=== PATIENT | male | born 1945 | race Caucasian/White ===

== ENCOUNTER 2016-12-03 21:24 | Emergency (ER) | payer MEDICARE ==
[~2016-12-03] VITALS: Ht 170.2 cm; Wt 93.0 kg
[~2016-12-03 21:24] MED LIST: AMLO5TAB PO; ASPIRIN 81MG TA81 MG PO; AUGMENTIN 875-1 EACH PO; BACTRIM DS 8001 TA1 PO; CENTRUM SILVER1 TAB PO; COQ10 IN OIL1 SGL PO; CRESTOR10 MG PO; DIGESTIVE ENZYM1 TAB PO; FLONASE 50 MCG16 GM; KEFLEX 500MG.500 MG PO; LISINOPRIL 10MG10 MG PO; MULTIVITAMIN1 TAB PO; OMEGA 31000 MG PO; PROBIOTIC FORMU1 CA1 PO; SIMVASTATIN20 MG PO; VITAMIN D1000 IU PO; ZETIA10 MG PO; ZOFRAN4 MG PO
--- NOTE | 2016-12-03 22:57 | Emergency Room Report ---
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 N Clinical Suspician of Infection? N Mental Status: 1 - Regular (Normal Baseline) Sepsis Risk:Low Sepsis Risk Have you (or family members/close friends) recently traveled outside the [place]? N If Yes, where/when: Have you had exposure to infectious disease within the past month? N TB? Other? Specify: Source patient, RN notes reviewed, family, old records Exam Limitations no limitations Comment pt with lt lower leg swelling just noted tonight with no known trauma or insect bite - he had some soreness during the day lat lt leg Cardiac Chest Pain Chest pain indicative of cardiac No Timing/Duration this evening Severity moderate ALLERGIES Coded Allergies: No Known Allergies (10/05/16) Home Medications Active Scripts Amoxicillin/Potassium Clav (Augmentin 875-125 Tablet) 1 EACH PO BID #14 TAB Prov: 10/18/16 Fluticasone Propionate (Flonase 50 Mcg Nasal [place]) 2 SPRAY NA DAILY #1 BOT Prov: 10/18/16 Reported Medications CHOLECALCIFEROL (VITAMIN D3) (Vitamin D3) 5,000 IUNITS PO WEEKLY ASPIRIN (Aspirin) 81 MG PO DAILY MULTIVIT,THER IRON,CA,FA & MIN (Sm Therapeutic M Tablet) 1 TAB PO DAILY B.ANI/L.ACI/L.DAILY/L.PLAN/L.MAX (Probiotic Formula Capsule) 1 CAP PO DAILY LISINOPRIL (Lisinopril) 40 MG PO DAILY Rosuvastatin Calcium (Crestor) 10 MG PO QHS Amlodipine Besylate (Amlodipine) 5 MG PO DAILY Enzymes2 (Digestive Enzymes) 1 TAB PO MULTIVITAMIN (Multiple Vitamins) 1 TAB PO DAILY Coenzyme Q10/Vitamin E (Coq10 in Oil) 1 SGL PO DAILY History Medical History General CAD? Yes Angina: No AR: No Hypertension? Yes Hyperlipidemia? Yes CHF? No DVT? No PE? No COPD? No Asthma? No Anemia? No GERD? No Gastric ulcers? No GI Bleed? No Hernia? No Thyroid Problems? No Hypothyroidism? No CVA? No Seizures? No Diabetes? No Renal Insuffiency? No End Stage Renal Disease? No UTI? No Stones? No BPH? No GB Disease: No Nephritic Syndrome? No Asplenia? No Hepatitis? No Sickle Cell Disease? No Arthritis? No Migraines? No Cataracts? No Glaucoma? No MRSA? No HIV? No TB? No Anxiety? No Depression? No Cancer? No More? No Immunization Hx DT/Tetanus UNKNOWN Flu 2011-FSN Pneumonia REFUSES Surgical Hx Previous Surgery?Y REMOVAL SKIN LESIONS ORAL SURGERY Family History Family Hx Diabetes No CAD No Hypertension No Hyperlipidemia No Cancer Yes TB No Social History Smoking Hx Smoker: Never Smoker Tobacco: No Alcohol Alcohol: No Drugs none Review of Systems All Other Systems Reviewed and Negative Constitutional denies fever Eyes denies drainage ENT denies: ear discharge, epistaxis, throat pain. Respiratory denies cough, denies shortness of breath, denies wheezing Cardiovascular denies chest pain, denies syncope Gastrointestinal denies abdominal pain, denies diarrhea, denies vomiting Genitourinary denies: dysuria, frequency, hesitancy, hematuria. Musculoskeletal see HPI, denies back pain, denies joint pain, denies joint swelling, denies neck pain, other Skin denies rash Psychiatric/Neurological denies headache, denies seizure Physical Exam Vital Signs Vital Signs Date Time Temp Pulse Resp B/P Pulse O2 O2 Flow FiO2 Ox Delivery Rate 12/03 2259 98.2 68 18 158/86 96 12/03 2131 98.0 69 18 149/75 98 - WBC >12,000 or <4,000 or 10% bands? 2 or more SIRS Criteria Met? B/P:158/86 MAP:99 Creatinine >2.0? UA output<0.5ml/kg/hr for 2 hrs? Platelet count >100,000? Lactate >2.0mmol/1? INR >1.2 or PTT > than 60 sec? Evidence of Organ Dysfunction? Provider documented clinical suspician of infection? N Sepsis Criteria Count: 0 Sepsis Risk: Low Sepsis Risk General Appearance no apparent distress Eye Exam - bilateral eye PERRL, bilateral eye EOMI Ear, Nose, Throat normal ENT inspection Neck supple Respiratory Status No: respiratory distress. 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 No Results/Orders Orders Procedure Date/time Status ANKLE-LT-3 VIEWS 12/03 2142 Active XRAY/CT/US XRAY/CT/US XRAY ankle XR interpretation by reviewed by me Xray Results no fracture seen Departure Departure Time of Disposition 2306 Disposition DC Home or Self Care(routine) Clinical Impression Primary Impression: Pain and swelling of left lower extremity Condition STABLE Patient Instructions DI for Deep Vein Thrombosis Additional Instructions will do venous doppler in am and will se pcp in am Discharge Counseling Counseled pt/family regarding diagnosis, test results, medications/RX, follow up needs ED Critical Care Critical Care No at 2308
[2016-12-03 23:17] VITALS: BP 158/86
--- NOTE | 2016-12-04 08:11 | RADIOLOGY REPORT PS360 ---
ANKLE-LT-3 VIEWS COMPARISON: None HISTORY: Left ankle pain TECHNIQUE: AP lateral and oblique views FINDINGS: The medial and lateral malleolus appear intact and the ankle mortise is normal. There is no significant soft tissue swelling. IMPRESSION: Negative left ankle
--- OUTSIDE RECORDS SUMMARY | 2016-12-11 00:23 | External Medical Summary Rpt | CCD ---
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 Name Role Phone Don Bertrand Unavailable Unavailable , Don Bertrand MD Purpose Continuity of Care Document - 07-31-2012 through 2016 Problems Code Diagnosis DOS Provider Status 272.4 272.4 08-02-2012 [place] HYPERLIPIDE [facility] NEC/NOS Hospital 401.9 401.9 08-02-2012 [place] HYPERTENSIO [facility] N NOS [facility] 575.9 575.9 DIS 08-02-2012 [place] OF [facility] GALLBLADDER Hospital NOS 787.91 787.91 08-02-2012 [place] DIARRHEA [facility] 789.07 789.07 08-02-2012 [place] ABDOMINAL [facility] PAIN, Hospital GENERALIZED V58.69 V58.69 OTH 08-02-2012 [place] MED,LT,[facility] ENT USE Hospital Allergies, Adverse Reactions, Alerts Type Allergy to substance Adverse Reaction to Substance Substance Reaction Severity NO KNOWN ALLERGIES Unknown Unknown Medications Na ND Rx Da Fi Fi Am Da Di Ph RX Ph St me C No te ll ll ou ys ag ar # ys at rm s nt no ma ic us Or Da si cy ia de te s n re d HY [address] 40 -0 OM 91 3- Lo OR 31 20 ng PH 23 13 er ON 0 E Ac 2 ti MG ve /M L CA RP UJ CT Li 00 06 0 No si 17 -0 no 23 3- Lo pr 76 20 ng il 01 13 er 0 20 Ac MG ti ve Ta bl et MA 00 06 1 No PA 90 -0 P 41 3- Lo 32 98 20 ng 5 26 13 er MG 1 Ac TA ti BL ve ET DI 00 06 0 No PH 90 -0 EN 45 3- Lo HY [address] 66 13 er AM 1 IN Ac E ti 25 ve MG CA PS UL E SO 00 06 0 No DI 40 -0 UM 97 2- Lo 98 20 ng CH 30 13 er LO 9 RI Ac DE ti ve 0. 9% SO YAQUELIN TI ON Sa 63 06 1 No li 80 -0 ne 70 2- Lo 10 20 ng Fl 07 13 er us 5 h Ac 10 ti ML ve Sy ri ng e ON 00 06 0 No DA 64 -0 NS 16 2- Lo ET 08 20 ng RO 02 13 er N 5 HC Ac L ti 4 ve MG /2 ML AL Mo 00 06 0 No rp 40 -0 hi 91 2- Lo ne 25 20 ng 83 13 er 4M 0 G/ Ac Ml ti ve Sy ri ng e HY [address] 40 -0 OM 91 2- Lo OR 30 20 ng PH 43 13 er ON 1 E Ac 4 ti MG ve /M L CA RP UJ CT Vital Signs 08-02-2012 08:30 Name Value Interpretat Reference Comment ion Range Body 98.2 [degF] Temperature BP 86 mm[Hg] Diastolic BP Systolic 161 mm[Hg] Heart 65 /min Rate/Pulse Respiratory 16 /min Rate 08-02-2012 08:00 Name Value Interpretat Reference Comment ion Range O2% 97 % 07-31-2012 21:30 Name Value Interpretat Reference Comment ion Range Height 170.18 cm Weight 85.276 kg Measured 07-31-2012 17:52 Name Value Interpretat Reference Comment ion Range Body 97.4 [degF] Temperature BP 69 mm[Hg] Diastolic BP Systolic 132 mm[Hg] Heart 59 /min Rate/Pulse O2% 98 % Respiratory 20 /min Rate Weight 0 [oz_av] Measured Results Labs Lab Lab Date Result Refere Interp Status Commen Order Detail nces retati t Range on COMPREHENSIVE METABOLIC PANEL (08-02-2012 06:20) Glucose 102 74-106 complet 013 mg/dL ed Bld-mCn 06:20 c BUN 10 7-18 complet Bld-mCn 013 mg/dL ed c 06:20 Creat 1.0 0.8-1.3 complet SerPl-m 013 mg/dL ed Cnc 06:20 ESTIMAT 86 50-200 complet ED 013 ML/MIN ed CREATIN 06:20 INE CLEARAN CE GFR 75 Greater complet (ESTIMA 013 ML/MIN than ed ATIF) 06:20 60 Sodium 08-02-2 141 136-145 complet SerPl-s 013 mmoL/L ed Cnc 06:20 Potassi 06-2 4.1 3.5-5.1 complet um 013 mmoL/L ed SerPl-s 06:20 Cnc Chlorid 08-02-2 107 98-107 complet e 013 mmoL/L ed SerPl-s 06:20 Cnc CO2 08-02-2 26 21.0-32 complet SerPl-s 013 mmoL/L .0 ed Cnc 06:20 Calcium 06-2 7.5 8.5-10. complet 013 mg/dL 1 ed SerPl-m 06:20 Cnc Prot 08-02-2 5.8 6.4-8.2 complet SerPl-m 013 gm/dL ed Cnc 06:20 Albumin 08-02-2 2.7 3.4-5.0 complet 013 gm/dL ed SerPl-m 06:20 Cnc Globuli 08-02-2 3.1 1.3-3.2 complet n 013 gm/dL ed Ser-mCn 06:20 c Albumin 08-02-2 0.9 UNK 1.1-1.8 complet /Glob 013 ed SerPl-m 06:20 Rto Bilirub 08-02-2 0.5 0.2-1.0 complet 013 mg/dL ed SerPl-m 06:20 Cnc AST 08-02-2 15 U/L 15-37 complet SerPl-c 013 ed Cnc 06:20 ALT 08-02-2 35 U/L 30-65 complet SerPl-c 013 ed Cnc 06:20 ALP 0604-2 91 U/L 50-136 complet SerPl-c 013 ed Cnc 06:20 Amylase SerPl-cCnc (08-02-2012 06:20) Amylase 04-2 82 U/L 25-115 complet 013 ed SerPl-c 06:20 Cnc BASIC METABOLIC PANEL (08-01-2012 05:23) Glucose 03-2 125 74-106 complet 013 mg/dL ed Bld-mCn 05:23 c BUN 03-2 18 7-18 complet Bld-mCn 013 mg/dL ed c 05:23 Creat 08-01-2 1.1 0.8-1.3 complet SerPl-m 013 mg/dL ed Cnc 05:23 ESTIMAT 2 79 50-200 complet ED 013 ML/MIN ed CREATIN 05:23 INE CLEARAN CE GFR 67 Greater complet (ESTIMA 013 ML/MIN than ed ATIF) 05:23 60 Sodium 08-01- 137 136-145 complet SerPl-s 013 mmoL/L ed Cnc 05:23 Potassi 4.3 3.5-5.1 complet um 013 mmoL/L ed SerPl-s 05:23 Cnc Chlorid 104 98-107 complet e 013 mmoL/L ed SerPl-s 05:23 Cnc CO2 29 21.0-32 complet SerPl-s 013 mmoL/L .0 ed Cnc 05:23 Calcium 2 7.1 8.5-10. complet 013 mg/dL 1 ed SerPl-m 05:23 Cnc LIVER PROFILE (08-01-2012 05:23) Prot 08-01-2 6.0 6.4-8.2 complet SerPl-m 013 gm/dL ed Cnc 05:23 Albumin 08-01-2 3.0 3.4-5.0 complet 013 gm/dL ed SerPl-m 05:23 Cnc Bilirub 08-01-2 0.5 0.2-1.0 complet 013 mg/dL ed SerPl-m 05:23 Cnc Bilirub 08-01-2 0.2 0.0-0.2 complet Direct 013 mg/dL ed 05:23 SerPl-m Cnc Bilirub 08-01-2 0.3 0-0.9 complet 013 mg/dL ed Indirec 05:23 t SerPl-m Cnc AST 2 12 U/L 15-37 complet SerPl-c 013 ed Cnc 05:23 ALT 2 33 U/L 30-65 complet SerPl-c 013 ed Cnc 05:23 ALP 2 96 U/L 50-136 complet SerPl-c 013 ed Cnc 05:23 Amylase SerPl-cCnc (08-01-2012 05:23) Amylase 107 U/L 25-115 complet 013 ed SerPl-c 05:23 Cnc LIPASE (08-01-2012 05:23) LIPASE 06-03-2 113 U/L 73-393 complet 013 ed 05:23 CBC with AUTO DIFF (08-01-2012 05:23) WBC # 06-03-2 6.8 4.8-10. complet Bld 013 K/MM3 8 ed Auto 05:23 RBC # 06-03-2 4.69 4.6-6.2 complet Bld 013 M/mm3 ed Auto 05:23 Hgb 06-03-2 14.7 14.1-18 complet Bld-mCn 013 g/dL .0 ed c 05:23 Hct Fr 06-03-2 44.9 % 42.0-52 complet Bld 013 .0 ed 05:23 MCV RBC 06-03-2 95.7 fl 82.2-97 complet 013 .8 ed 05:23 MCH RBC 06-03-2 31.4 pg 27-31.2 complet Qn 013 ed Auto 05:23 MEAN 06-03-2 32.8 31.8-35 complet CORPUSC 013 g/dl .4 ed ULAR 05:23 HGB CONC RDW RBC 06-03-2 13.6 % 11.5-17 complet Auto 013 .5 ed 05:23 Platele 06-03-2 194 142-424 complet t Bld 013 K/mm3 ed Ql 05:23 Manual MEAN 06-03-2 7.2 fl 7.4-10. complet PLATELE 013 4 ed T 05:23 VOLUME Granulo 06-03-2 75.6 % 37.0-80 complet cytes 013 .0 ed Fr Bld 05:23 Auto LYMPH % 06-03-2 16.4 % 10-50 complet 013 ed 05:23 Monocyt 06-03-2 6.6 % 1.7-9.3 complet es Fr 013 ed Bld 05:23 Auto Eosinop 06-03-2 1.2 % 0.1-12. complet hil Fr 013 0 ed Bld 05:23 Auto Basophi 06-03-2 0.3 % 0.1-2.0 complet ls Fr 013 ed Bld 05:23 Auto Granulo 06-03-2 5.2 1.3-8.0 complet cytes # 013 K/mm3 ed Bld 05:23 Auto Lymphoc 06-03-2 1.1 0.7-4.5 complet ytes Fr 013 K/mm3 ed Bld 05:23 Auto Monocyt 06-03-2 0.5 0.1-1.0 complet es # 013 K/mm3 ed Bld 05:23 Auto Eosinop 06-03-2 0.1 0.0-0.4 complet hil # 013 K/mm3 ed Bld 05:23 Auto Basophi 0603-2 0.0 0-0.2 complet ls # 013 K/MM3 ed Bld 05:23 Auto Amylase SerPl-cCnc (07-31-2012 18:20) Amylase 02-2 212 U/L 25-115 complet 013 ed SerPl-c 18:20 Cnc LIPASE (07-31-2012 18:20) LIPASE 02-2 450 U/L 73-393 complet 013 ed 18:20 COMPREHENSIVE METABOLIC PANEL (07-31-2012 18:19) Glucose 02- 131 74-106 complet 013 mg/dL ed Bld-mCn 18:19 c BUN 24 7-18 complet Bld-mCn 013 mg/dL ed c 18:19 Creat 07-31-2 1.2 0.8-1.3 complet SerPl-m 013 mg/dL ed Cnc 18:19 ESTIMAT 07-31-2 70 50-200 complet ED 013 ML/MIN ed CREATIN 18:19 INE CLEARAN CE GFR 60 Greater complet (ESTIMA 013 ML/MIN than ed ATIF) 18:19 60 Sodium 07-31- 136 136-145 complet SerPl-s 013 mmoL/L ed Cnc 18:19 Potassi 4.6 3.5-5.1 complet um 013 mmoL/L ed SerPl-s 18:19 Cnc Chlorid 101 98-107 complet e 013 mmoL/L ed SerPl-s 18:19 Cnc CO2 07-31-2 30 21.0-32 complet SerPl-s 013 mmoL/L .0 ed Cnc 18:19 Calcium 07-31- 8.1 8.5-10. complet 013 mg/dL 1 ed SerPl-m 18:19 Cnc Prot 07-31- 7.0 6.4-8.2 complet SerPl-m 013 gm/dL ed Cnc 18:19 Albumin 02-2 3.6 3.4-5.0 complet 013 gm/dL ed SerPl-m 18:19 Cnc Globuli 06-02-2 3.4 1.3-3.2 complet n 013 gm/dL ed Ser-mCn 18:19 c Albumin 06-02-2 1.1 UNK 1.1-1.8 complet /Glob 013 ed SerPl-m 18:19 Rto Bilirub 06-02-2 0.7 0.2-1.0 complet 013 mg/dL ed SerPl-m 18:19 Cnc AST 06-02-2 15 U/L 15-37 complet SerPl-c 013 ed Cnc 18:19 ALT 06-02-2 42 U/L 30-65 complet SerPl-c 013 ed Cnc 18:19 ALP 06-02-2 114 U/L 50-136 complet SerPl-c 013 ed Cnc 18:19 CBC with AUTO DIFF (07-31-2012 18:19) WBC # 06-02-2 8.1 4.8-10. complet Bld 013 K/MM3 8 ed Auto 18:19 RBC # 06-02-2 5.32 4.6-6.2 complet Bld 013 M/mm3 ed Auto 18:19 Hgb 06-02-2 16.5 14.1-18 complet Bld-mCn 013 g/dL .0 ed c 18:19 Hct Fr 06-02-2 50.7 % 42.0-52 complet Bld 013 .0 ed 18:19 MCV RBC 06-02-2 95.2 fl 82.2-97 complet 013 .8 ed 18:19 MCH RBC 06-02-2 31.0 pg 27-31.2 complet Qn 013 ed Auto 18:19 MEAN 06-02-2 32.5 31.8-35 complet CORPUSC 013 g/dl .4 ed ULAR 18:19 HGB CONC RDW RBC 06-02-2 13.9 % 11.5-17 complet Auto 013 .5 ed 18:19 Platele 06-02-2 236 142-424 complet t Bld 013 K/mm3 ed Ql 18:19 Manual MEAN 06-02-2 7.2 fl 7.4-10. complet PLATELE 013 4 ed T 18:19 VOLUME Granulo 06-02-2 84.5 % 37.0-80 complet cytes 013 .0 ed Fr Bld 18:19 Auto LYMPH % 06-02-2 8.7 % 10-50 complet 013 ed 18:19 Monocyt 06-02-2 5.9 % 1.7-9.3 complet es Fr 013 ed Bld 18:19 Auto Eosinop 06-02-2 0.5 % 0.1-12. complet hil Fr 013 0 ed Bld 18:19 Auto Basophi 06-02-2 0.5 % 0.1-2.0 complet ls Fr 013 ed Bld 18:19 Auto Granulo 06-02-2 6.8 1.3-8.0 complet cytes # 013 K/mm3 ed Bld 18:19 Auto Lymphoc 06-02-2 0.7 0.7-4.5 complet ytes Fr 013 K/mm3 ed Bld 18:19 Auto Monocyt 06-02-2 0.5 0.1-1.0 complet es # 013 K/mm3 ed Bld 18:19 Auto Eosinop 06-02-2 0.0 0.0-0.4 complet hil # 013 K/mm3 ed Bld 18:19 Auto Basophi 06-02-2 0.0 0-0.2 complet ls # 013 K/MM3 ed Bld 18:19 Auto Encounters Encounter Start End Date Code Location Performer Type Date Inpatient ELAINE Bertrand ([place]) 3 18:14 3 08:40 [facility] Ev
--- OUTSIDE RECORDS SUMMARY | 2016-12-11 00:23 | External Medical Summary Rpt | CCD ---
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 Role Phone Don Bertrand Unavailable Unavailable , Don Bertrand MD Purpose Continuity of Care Document - 07-31-2012 through 2016 Problems Code Diagnosis DOS Provider Status 272.4 272.4 08-02-2012 [place] HYPERLIPIDE [facility] NEC/NOS Hospital 401.9 401.9 08-02-2012 [place] HYPERTENSIO [facility] N NOS [facility] 575.9 575.9 DIS 08-02-2012 [place] OF [facility] GALLBLADDER Hospital NOS 787.91 787.91 08-02-2012 [place] DIARRHEA [facility] 789.07 789.07 08-02-2012 [place] ABDOMINAL [facility] PAIN, Hospital GENERALIZED V58.69 V58.69 OTH 08-02-2012 [place] MED,LT,[facility] ENT USE Hospital Allergies, Adverse Reactions, Alerts [...] ELAINE Bertrand ([place]) 3 18:14 3 08:40 [facility] Ev
--- OUTSIDE RECORDS SUMMARY | 2016-12-11 00:24 | External Medical Summary Rpt ---
Author Author LESLEY Chun, [employer] Address Unknown Phone Unavailable
--- OUTSIDE RECORDS SUMMARY | 2016-12-11 00:24 | External Medical Summary Rpt | CCD ---
Author Author , LESLEY SUTTON Address Unknown Phone [email or web address] Immunization Name Date Rout CVX Reac Dose Comm Prov Is Faci e tion ent ider Refu lity Give sed n PCV1 01-1 Intr 133 0.5 Hist [facility] No WALM 3 9-20 amus mL oric ART5 ART5 17 cula al 91 91 r Info rmat ion - Sour ce Unsp ecif ied Infl 11-0 Intr 135 0.5 Hist [facility] No WALM uenz 9-20 amus mL oric ART5 ART5 a, 16 cula al 91 91 High r Info rmat Dose ion - Sour ce Unsp ecif ied
--- OUTSIDE RECORDS SUMMARY | 2016-12-11 00:24 | External Medical Summary Rpt | CCD ---
Author Author , LESLEY SUTTON Address Unknown Phone [email or web address] Immunization Name Date Rout CVX Reac Dose [...]
== END 2016-12-03 23:22 | disposition home or self-care (01) ==
LOC: ER 21:24
DX: M25.572 Pain in left ankle and joints of left foot (principal); M79.89 Other specified soft tissue disorders; I10 Essential (primary) hypertension; E78.5 Hyperlipidemia, unspecified